=== PATIENT | female | born 1975 | race Caucasian/White ===

== ENCOUNTER 2019-05-13 12:26 | Emergency (ER) | payer SELFPAY ==
[~2019-05-13] VITALS: Ht 157.5 cm; Wt 59.5 kg
[2019-05-13 12:29] VITALS: BP 154/101
[2019-05-13] MEDS ORDERED: BENZOCAINE 20% SPRAY 0.5ML ONE (12:39)
[2019-05-13] MEDS ORDERED: OXYcodone/APAP 5/325MG TABLET ONE (12:43)
[2019-05-13] MEDS ORDERED: OXYcodone/APAP 5/325MG TABLET PO ONE (13:00)
[2019-05-13] MEDS ORDERED: BENZOCAINE 20% SPRAY 0.5ML TP ONE (13:00)
== END 2019-05-13 13:13 | disposition home or self-care (01) ==
LOC: ED 12:45
DX: K04.7 Periapical abscess without sinus (principal); K02.9 Dental caries, unspecified
CPT/HCPCS: 41800; 99283

== ENCOUNTER 2019-09-26 14:12 | Inpatient (IN) | payer OTHER ==
[~2019-09-26] VITALS: Ht 160 cm; Wt 61.4 kg
--- NOTE | 2019-09-26 14:47 | NUR ---
pt presents to ED with c/o n/v/d daily since 07/20/2019. pt denies pain. denies sore throat, cough, sob. pt a&o, repss even and unlabored, nadn. pt given urine cup and instructed to provide clean catch ua. pt ambulatory to bathroom with steady gait.
--- NOTE | 2019-09-26 14:50 | NUR ---
REPORT GIVEN TO GEO SPANGLER WHO IS TO ASSUME CARE.
[2019-09-26] MEDS ORDERED: ONDANSETRON 2MG/ML, 2ML IVPush ONE (15:00)
[2019-09-26] MEDS ORDERED: THIAMINE 100 MG in SODIUM CHLORIDE 0.9% 50 ML IVPB ONE (15:00)
[2019-09-26] MEDS ORDERED: LORazepam 2 MG/ML, 1ML IVPush ONE (15:00)
[2019-09-26] MEDS ORDERED: SODIUM CHLORIDE 0.9% 1,000ML IVBOLUS ONE (15:00)
[2019-09-26] MEDS ORDERED: SODIUM CHLORIDE FLUSH 10ML SYR IVF ONE (15:00)
[2019-09-26] MEDS ORDERED: ONDANSETRON 2MG/ML, 2ML ONE (15:03)
[2019-09-26 15:15] LABS: MICROSCOPIC INDICATED
[2019-09-26 15:17] LABS: ALANINE AMINOTRANSFERASE 100 U/L (12-78); ALBUMIN 3.4 g/dL (3.4-5.0); ANION GAP 10 mmol/L (5-15); CALCIUM 8.7 mg/dL (8.5-10.1); CHLORIDE 101 mmol/L (98-107); CREATININE 0.84 mg/dL (0.55-1.02)
[2019-09-26 15:19] LABS: ALKALINE PHOSPHATASE 156 U/L (45-117); BILIRUBIN,TOTAL 2.2 mg/dL (0.2-1.0); TOTAL PROTEIN 7.4 g/dL (6.4-8.2)
[2019-09-26 15:21] LABS: MEAN CORPUSCULAR HEMOGLOBIN 39.5 pg (27.0-34.8); MEAN CORPUSCULAR HGB CONC 33.6 g/dL (32.4-35.8); MEAN CORPUSCULAR VOLUME 117.7 fL (80-100); MEAN PLATELET VOLUME 8.1 fL (7.4-10.4); PLATELET COUNT 350 x10^3/uL (130-400); RED BLOOD COUNT 4.23 x10^6/uL (3.82-5.3)
--- NOTE | 2019-09-26 15:45 | NUR ---
REPORT TO GEO FELDER.
[2019-09-26 15:50] LABS: MD YES
[2019-09-26 15:52] LABS: <PLATELET ESTIMATE> ADEQUATE; BAND#(MANUAL) 0.34 x10^3/uL; BANDS%(MANUAL) 4 % (0-7); EOS#(MANUAL) 0.09 x10^3/uL (0.0-0.4); EOS% (MANUAL) 1 % (1-7); LYMPH#(MANUAL) 1.03 x10^3/uL (1-3.4); LYMPHS% (MANUAL) 12 % (22-44); MONOS#(MANUAL) 1.29 x10^3/uL (0.3-2.7); MONOS% (MANUAL) 15 % (2-9); REACTIVE LYMPHS # (MANUAL) 0.09 x10^3/uL (0-0); REACTIVE LYMPHS % (MANUAL) 1 % (0-0); SEG#(MANUAL) 5.76 x10^3/uL (1.8-6.8); SEGS% (MANUAL) 67 % (42-75)
[2019-09-26 15:53] LABS: LARGE PLATELETS 1+
[2019-09-26] MEDS ORDERED: LORazepam 2 MG/ML, 1ML ONE (15:56)
[2019-09-26] MEDS ORDERED: POTASSIUM CHLORIDE 20 MEQ PACKET ONE (16:01)
[2019-09-26] MEDS ORDERED: POTASSIUM CHLORIDE 40 MEQ in SODIUM CHLORIDE 0.9% 500 ML IV ONE (17:00)
[2019-09-26] MEDS ORDERED: POTASSIUM CHLORIDE 20 MEQ PACKET PO ONE (17:00)
--- NOTE | 2019-09-26 17:20 | NUR ---
MED PUMP REMOVED. IV SL FOR TRANSPORT.
[2019-09-26] MEDS ORDERED: hydrALAzine 20 MG/ML, 1ML IVPush PRN (17:30)
[2019-09-26] MEDS ORDERED: ONDANSETRON 2MG/ML, 2ML IVPush PRN (17:30)
[2019-09-26] MEDS ORDERED: ONDANSETRON ODT 4 MG PO PRN (17:30)
[2019-09-26] MEDS ORDERED: PROMETHAZINE 25 MG/ML, 1ML IM PRN (17:30)
[2019-09-26 17:49] LABS: INTERNATIONAL NORMALIZED RATIO 0.97 (0.93-1.1); PROTHROMBIN TIME 10.3 Seconds (9.6-11.5)
[2019-09-26 17:56] LABS: C-REACTIVE PROTEIN, QUANT 0.31 mg/dL (0.02-0.49)
[2019-09-26 18:00] LABS: FREE T4 (FREE THYROXINE) 0.97 ng/dL (0.76-1.46)
[2019-09-26] MEDS ORDERED: LORazepam 2 MG/ML, 1ML IV PRN ×5 (18:00)
[2019-09-26] MEDS ORDERED: MAGNESIUM SULFATE/D5W 100 ML IV ONE (18:00)
[2019-09-26] MEDS ORDERED: THIAMINE 200 MG in DEXTROSE 5% 50 ML IVPB ONE (18:00)
[2019-09-26] MEDS ORDERED: MAGNESIUM SULFATE PMX 2GM/50ML 50 ML IV ONE (18:00)
[2019-09-26 18:01] VITALS: BP 137/96
[2019-09-26 18:37] LABS: HCT (SEDRATE) 49.8 % (34.6-47.8)
[2019-09-26 18:51] VITALS: BP 125/86
[2019-09-26] MEDS: ZOLPIDEM 5MG TABLET PO PRN (22:12)
[2019-09-26] MEDS: MAGNESIUM SULFATE 3 GM in SODIUM CHLORIDE 0.9% 100 ML IV ONE (22:12)
[2019-09-26] MEDS: ENOXAPARIN 40 MG/0.4 ML SQ SCH (22:13)
[2019-09-26] MEDS: NICOTINE 14MG/24 HR PATCH.TD24 TD SCH (22:13)
[2019-09-26 22:38] LABS: MICROSCOPIC INDICATED
[2019-09-27 00:07] LABS: OCCULT BLOOD NEGATIVE (NEGATIVE)
[2019-09-27 00:33] LABS: CLOSTRIDIUM DIFFICILE ANTIGEN NEGATIVE; CLOSTRIDIUM DIFFICILE TOXIN NEGATIVE (Negative)
[2019-09-27 00:54] LABS: STOOL FOR LEUKOCYTES NONE SEEN (NEGATIVE)
[2019-09-27 01:16] VITALS: BP 116/80
[2019-09-27] MEDS: MAGNESIUM SULFATE 3 GM in SODIUM CHLORIDE 0.9% 100 ML IV ONE (01:59)
[2019-09-27] MEDS: LACTATED RINGERS 1,000 ML IV SCH ×2 (05:38→21:49)
[2019-09-27 05:47] LABS: MEAN CORPUSCULAR HEMOGLOBIN 39.8 pg (27.0-34.8); MEAN CORPUSCULAR HGB CONC 33.6 g/dL (32.4-35.8); MEAN CORPUSCULAR VOLUME 118.5 fL (80-100); MEAN PLATELET VOLUME 7.9 fL (7.4-10.4); PLATELET COUNT 304 x10^3/uL (130-400); RED BLOOD COUNT 3.41 x10^6/uL (3.82-5.3); RED CELL DISTRIBUTION WIDTH 13.7 % (9.6-15.2)
[2019-09-27 05:49] LABS: ALBUMIN 2.5 g/dL (3.4-5.0); ANION GAP 7 mmol/L (5-15); CALCIUM 7.8 mg/dL (8.5-10.1); CHLORIDE 105 mmol/L (98-107)
[2019-09-27 05:53] LABS: ALANINE AMINOTRANSFERASE 70 U/L (12-78); ALKALINE PHOSPHATASE 117 U/L (45-117); CREATININE 0.58 mg/dL (0.55-1.02); TOTAL PROTEIN 5.5 g/dL (6.4-8.2)
[2019-09-27 06:10] LABS: BASOPHILS # (AUTO) 0.03 x10^3/uL (0-0.1); BASOPHILS % (AUTO) 0 % (0-1); EOSINOPHILS # (AUTO) 0.12 x10^3/uL (0-0.4); EOSINOPHILS % (AUTO) 2 % (1-7); LYMPHOCYTES # (AUTO) 2.44 x10^3/uL (1-3.4); LYMPHOCYTES % (AUTO) 31 % (22-44); MD SCAN; MONOCYTES # (AUTO) 0.49 x10^3/uL (0.2-0.8); MONOCYTES % (AUTO) 6 % (2-9); NEUTROPHILS # (AUTO) 4.87 x10^3/uL (1.8-6.8); NEUTROPHILS % (AUTO) 61 % (42-75)
[2019-09-27 06:46] VITALS: BP 129/92
[2019-09-27] MEDS ORDERED: POTASSIUM CHLORIDE 40 MEQ in SODIUM CHLORIDE 0.9% 500 ML IV ONE (07:30)
[2019-09-27 08:33] LABS: CRYPTOSPORIDIUM ANTIGEN Negative (Negative)
[2019-09-27] MEDS: MULTIVITAMINS/MINERALS TABLET PO SCH (09:16)
[2019-09-27] MEDS: PANTOPRAZOLE 40 MG IV IVPush SCH (09:16)
[2019-09-27 12:01] VITALS: BP 122/86
[2019-09-27] MEDS: ENOXAPARIN 40 MG/0.4 ML SQ SCH (21:33)
[2019-09-27] MEDS: NICOTINE 14MG/24 HR PATCH.TD24 TD SCH (21:33)
[2019-09-27] MEDS: ZOLPIDEM 5MG TABLET PO PRN (21:33)
[2019-09-27] MEDS: LORazepam 0.5MG TABLET PO SCH (21:33)
[2019-09-27 21:40] VITALS: BP 141/88
[2019-09-27] MEDS: ACETAMINOPHEN 325 MG TABLET PO PRN (21:49)
[2019-09-28 00:05] VITALS: BP 107/72
[2019-09-28 04:55] LABS: ANION GAP 7 mmol/L (5-15); CALCIUM 7.7 mg/dL (8.5-10.1); CHLORIDE 108 mmol/L (98-107)
[2019-09-28 04:56] LABS: CREATININE 0.43 mg/dL (0.55-1.02)
[2019-09-28] MEDS: LACTATED RINGERS 1,000 ML IV SCH ×2 (06:00→14:57)
[2019-09-28 07:33] VITALS: BP 128/90
[2019-09-28] MEDS ORDERED: POTASSIUM CHLORIDE 40 MEQ in SODIUM CHLORIDE 0.9% 500 ML IV ONE (09:00)
[2019-09-28] MEDS: LORazepam 0.5MG TABLET PO SCH ×2 (09:20→21:21)
[2019-09-28] MEDS: MULTIVITAMINS/MINERALS TABLET PO SCH (09:20)
[2019-09-28] MEDS: PANTOPRAZOLE 40 MG IV IVPush SCH (09:20)
[2019-09-28 14:49] VITALS: BP 113/74
[2019-09-28] MEDS: ACETAMINOPHEN 325 MG TABLET PO PRN (14:51)
[2019-09-28] MEDS: HYDROcodone/APAP 5/325 TABLET PO PRN (16:31)
[2019-09-28 18:43] VITALS: BP 124/84
[2019-09-28] MEDS: ENOXAPARIN 40 MG/0.4 ML SQ SCH (21:22)
[2019-09-28] MEDS: NICOTINE 14MG/24 HR PATCH.TD24 TD SCH (21:23)
[2019-09-28] MEDS: ZOLPIDEM 5MG TABLET PO PRN (21:23)
[2019-09-29 00:20] VITALS: BP 137/90
[2019-09-29 05:35] LABS: ANION GAP 8 mmol/L (5-15); CALCIUM 8.3 mg/dL (8.5-10.1); CHLORIDE 107 mmol/L (98-107)
[2019-09-29 05:36] LABS: CREATININE 0.48 mg/dL (0.55-1.02)
[2019-09-29 06:56] VITALS: BP 126/85
[2019-09-29] MEDS: PANTOPRAZOLE 40 MG IV IVPush SCH (08:13)
[2019-09-29] MEDS: MULTIVITAMINS/MINERALS TABLET PO SCH (08:13)
[2019-09-29] MEDS: LORazepam 0.5MG TABLET PO SCH ×2 (08:13→21:04)
[2019-09-29] MEDS: HYDROcodone/APAP 5/325 TABLET PO PRN ×3 (08:20→21:04)
[2019-09-29 12:39] VITALS: BP 128/90
[2019-09-29 18:30] VITALS: BP 125/89
[2019-09-29] MEDS: ENOXAPARIN 40 MG/0.4 ML SQ SCH (21:05)
[2019-09-29] MEDS: NICOTINE 14MG/24 HR PATCH.TD24 TD SCH (21:05)
[2019-09-29] MEDS: ZOLPIDEM 5MG TABLET PO PRN (22:48)
[2019-09-30 00:26] VITALS: BP 115/81
[2019-09-30] MEDS: LORazepam 0.5MG TABLET PO SCH (07:44)
[2019-09-30] MEDS: MULTIVITAMINS/MINERALS TABLET PO SCH (07:44)
[2019-09-30] MEDS: PANTOPRAZOLE 40 MG IV IVPush SCH (07:44)
[2019-09-30 08:00] VITALS: BP 128/64
[2019-09-30] MEDS ORDERED: MULT-484 PO (11:43)
[2019-09-30] MEDS ORDERED: NICO-486 TD (11:43)
[2019-09-30] MEDS ORDERED: THIA100T67 PO (11:43)
[2019-09-30] MEDS ORDERED: PANT40TA3 PO (11:44)
[2019-09-30 13:49] VITALS: BP 115/80
== END 2019-09-30 13:50 | disposition home or self-care (01) | DRG 392 ==
LOC: ED 15:30 → EDIP 15:53 → 4WST 17:39 → 4NW 18:27
PROVIDERS: ADMIT Hospitalist; ATTEND Internal Medicine
DX: K29.20 Alcoholic gastritis without bleeding (principal); F10.239 Alcohol dependence with withdrawal, unspecified; E83.42 Hypomagnesemia; E87.6 Hypokalemia; I10 Essential (primary) hypertension; F17.210 Nicotine dependence, cigarettes, uncomplicated; K70.0 Alcoholic fatty liver; E86.0 Dehydration; I95.1 Orthostatic hypotension; R94.5 Abnormal results of liver function studies; Z90.710 Acquired absence of both cervix and uterus; Z03.818 Encounter for observation for suspected exposure to other biological agents ruled out
CPT/HCPCS: 36415; 76700; 80048; 80053; 80307; 81001; 82272; 82728; 83690; 83735; 84100; 84132; 84145; 84439; 84443; 84481; 84702; 85025; 85610; 85651; 86140; 87046; 87086; 87324; 87328; 87329; 87427; 89055; 93005; 96374; 96375; 99291; G0378; J1650; J2405; J3411; J3475; J3480; C9113; J2060; J7030; J7040; J7120; U0001-CS